=== PATIENT | female | born 2000 | race Two or more races ===

== ENCOUNTER 2019-02-21 13:59 | Emergency (ER) | payer MEDICAID, OTHER ==
[~2019-02-21] VITALS: Ht 167.6 cm; Wt 83.9 kg
[2019-02-21 14:10] VITALS: BP 116/70
== END 2019-02-21 16:32 | disposition left against medical advice (07) ==
LOC: ER 13:59
DX: J02.9 Acute pharyngitis, unspecified (principal); Z53.21 Procedure and treatment not carried out due to patient leaving prior to being seen by health care provider

== ENCOUNTER 2024-08-19 10:32 | Emergency (ER) | payer MEDICAID, OTHER ==
[~2024-08-19] VITALS: Ht 162.6 cm; Wt 81.0 kg
[~2024-08-19 10:32] MED LIST: ACET-1881 PO; PREN-96 PO
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
[2024-08-19 12:57] VITALS: BP 94/66; PULSE 61; RESP 16; TEMP 98.7; O2SAT 100
== END 2024-08-19 13:01 | disposition home or self-care (01) ==
LOC: ER 10:32 → EDBD 10:32 → ER 13:00
DX: S39.012A Strain of muscle, fascia and tendon of lower back, initial encounter (principal); R10.2 Pelvic and perineal pain; Z98.890 Other specified postprocedural states; V49.88XA Car occupant (driver) (passenger) injured in other specified transport accidents, initial encounter; Y93.89 Activity, other specified; Y92.89 Other specified places as the place of occurrence of the external cause; Y99.8 Other external cause status
CPT/HCPCS: 36415; 84702